=== PATIENT | male | born 1980 ===

== ENCOUNTER 2019-02-01 02:30 | Emergency (ER) | payer SELFPAY ==
[2019-02-01 02:40] VITALS: TEMP 98.3
--- NOTE | 2019-02-01 03:14 | C.PDOC ---
History Of Present Illness Patient presents to ED with complaint of left hand and left forearm pain since yesterday. 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 He denies fever, nausea, vomiting, weakness, or numbness . Time Seen by Provider: 02/01/19 03:14 Chief Complaint (Nursing): Upper Extremity Problem/Injury History Per: Patient History/Exam Limitations: no limitations Onset/Duration Of Symptoms: Days (1) Current Symptoms Are (Timing): Still Present Quality: "Pain" Severity: Moderate Pain Scale Rating Of: 4 Exacerbating Factor(s): Nothing Recent travel outside of the [place]: No Additional History Per: Patient Past Medical History Reviewed: Historical Data, Nursing Documentation, Vital Signs Vital Signs: Last Vital Signs Temp 98.3 F 02/01/19 02:35 Pulse 82 02/01/19 02:35 Resp 16 02/01/19 02:35 BP 136/95 H 02/01/19 02:35 Pulse Ox 97 02/01/19 02:35 Primary Care Provider: Eliecer Piper - Medical History PMH: No Chronic Diseases Surgical History: No Surg Hx Family History: States: Unknown Family Hx - Social History Hx Alcohol Use: No Hx Substance Use: No - Immunization History Hx Tetanus Toxoid Vaccination: No Hx Influenza Vaccination: No Hx Pneumococcal Vaccination: No Review Of Systems Constitutional: Negative for: Fever, Chills, Weakness Cardiovascular: Negative for: Chest Pain Respiratory: Negative for: Cough, Shortness of Breath Gastrointestinal: Negative for: Nausea, Vomiting Musculoskeletal: Positive for: Arm Pain (left forearm), Hand Pain (left) Skin: Negative for: Rash Neurological: Negative for: Weakness, Numbness Physical Exam - Physical Exam Appears: Non-toxic, No Acute Distress Skin: Warm, Dry Head: Normacephalic Eye(s): bilateral: Normal Inspection Oral Mucosa: Moist Neck: Trachea Midline, Supple Chest: Symmetrical Cardiovascular: Rhythm Regular Respiratory: No Rales, No Rhonchi, No Wheezing Gastrointestinal/Abdominal: Bowel Sounds (normoactive), Soft, No Tenderness, No Distention Extremity: Normal ROM (of the left hand and forearm), No Tenderness, Capillary Refill <2 Sec, No Swelling, Other (normal axillary pulse bilaterally) Extremity: Bilateral: Normal Color And Temperature Pulses: Left Radial: Normal, Right Radial: Normal Neurological/Psych: Oriented x3, Normal Speech, Normal Cognition, Normal Motor (5/5 strength), Normal Sensation Gait: Steady ED Course And Treatment O2 Sat by Pulse Oximetry: 97 (in RA) Pulse Ox Interpretation: Normal - CT Scan/US CT-Brain Other Rad Studies (CT/US): Read By Radiologist ([place] [facility]) CT/US Interpretation: IMPRESSION: Normal unenhanced CT scan of the brain. Moderate chronic mucosal inflammatory changes of the left ethmoid air cells. Air-fluid level in the left sphenoid sinus. Acute sinusitis. . Electronically signed on February 01, 2019 4:55:59 AM EDT by: Tiffany Cuevas M.D., Certified by CAMERON, MSPj, Neuroradiology. CT C-spine Other Rad Studies (CT/US): Read By Radiologist ([place] [facility]) CT/US Interpretation: IMPRESSION: Normal unenhanced CT examination of the cervical spine. . Electronically signed on February 01, 2019 4:57:38 AM EDT by: Tiffany Cuevas M.D., Certified by CAMERNO, MSK, Neuroradiology Reevaluation Time: 05:08 Reassessment Condition: Improved Medical Decision Making Medical Decision Making: Upon provider reevaluation patient is feeling better, is medically stable, and requires no further treatment in the ED at this time. Patient will be discharged home with Rx for naproxen . Counseling was provided and all questions were answered regarding diagnosis and need for follow up with the referred clinic. T here is agreement to discharge plan. Return if symptoms persist or worsen. Disposition Counseled Patient/Family Regarding: Studies Performed, Diagnosis, Need For Followup - Disposition Referrals: Eliecer Piper MD [Non-Staff] - Osvaldo House MD [Staff Provider] - Disposition: HOME/ ROUTINE Disposition Time: 03:14 Condition: FAIR Additional Instructions: Please return if symptoms recur Prescriptions: Naproxen [Naprosyn] 1 tab PO BID PRN #25 tab PRN Reason: Pain Instructions: Rotator Cuff Tendinitis Stretching Exercises, Paresthesias (DC) Forms: [facility] ([place]), Work Excuse - Clinical Impression Clinical Impression: Arm pain, left, Paresthesia - Scribe Statement The provider has reviewed the documentation as recorded by the Scribe (Arline Watts) All medical record entries made by the Scribe were at my direction and per sonally dictated by me. I have reviewed the chart and agree that the record accurately reflects my personal performance of the history, physical exam, medical decision making, and the department course for this patient. I have also personally directed, reviewed, and agree with the discharge instructions and disposition.
[2019-02-01 04:48] VITALS: BP 124/86; PULSE 86; RESP 18
[2019-02-01 04:58] VITALS: O2SAT 97
--- NOTE | 2019-02-01 07:58 | CT ---
Date of service: 02/01/2019 PROCEDURE: CT HEAD WITHOUT CONTRAST. HISTORY: numbness left arm COMPARISON: None available. TECHNIQUE: Axial computed tomography images were obtained through the head/brain without intravenous contrast. Radiation dose: Total exam DLP = 1049.73 mGy-cm. This CT exam was performed using one or more of the following dose reduction techniques: Automated exposure control, adjustment of the mA and/or kV according to patient size, and/or use of iterative reconstruction technique. FINDINGS: HEMORRHAGE: No intracranial hemorrhage. BRAIN: No mass effect or edema. No atrophy or chronic microvascular ischemic changes. VENTRICLES: Unremarkable. No hydrocephalus. CALVARIUM: Unremarkable. PARANASAL SINUSES: Moderate mucosal thickening and opacification of the ethmoid air cells and sphenoid sinus. MASTOID AIR CELLS: Unremarkable as visualized. No inflammatory changes. OTHER FINDINGS: Fullness in the intrasellar region, nonspecific. Clinical correlation. IMPRESSION: No acute intracranial abnormality. Sinus mucosal disease. If symptoms persist, or there is concern for acute ischemic change, consider correlation with MRI. A preliminary report was generated at 4:55 a.m. on 02/01/[address] Tiffany Cuevas from [employer].
--- NOTE | 2019-02-01 08:32 | CT ---
Date of service: 02/01/2019 PROCEDURE: CT Cervical Spine without contrast HISTORY: numbness left arm COMPARISON: None available. TECHNIQUE: Axial computed tomography images were obtained of the cervical spine without the use of intravenous contrast. Coronal and sagittal reformatted images were created and reviewed. Radiation dose: Total exam DLP = 589.68 mGy-cm. This CT exam was performed using one or more of the following dose reduction techniques: Automated exposure control, adjustment of the mA and/or kV according to patient size, and/or use of iterative reconstruction technique. FINDINGS: VERTEBRAE: There is straightening of the cervical spine with loss of normal cervical lordosis. Vertebral alignment is normal. Vertebral height is maintained. There is no acute fracture or traumatic anterior listhesis. The craniocervical junction is normal. The atlantoaxial joint is normal. DISCS/SPINAL CANAL/NEURAL FORAMINA: There is mild multilevel degenerative disc disease due to combination of disc osteophyte complexes, uncovertebral joint hypertrophy and mild multilevel facet arthropathy, worse at C3-4 with severe right and moderate left neural foraminal narrowing without significant central spinal canal stenosis. PARASPINAL SOFT TISSUES: Unremarkable. OTHER FINDINGS: None. IMPRESSION: No acute fracture or traumatic anterior listhesis. Straightening of the cervical spine may be positional or related to muscle spasm. Mild multilevel degenerative disc disease due to combination of disc osteophyte complexes, uncovertebral joint hypertrophy and multilevel facet arthropathy, worse at C3-4 with severe right and moderate left neural foraminal narrowing. Please note if there is a persistent clinical concern, an MRI of the cervical spine without intravenous contrast is the modality of choice to evaluate for degenerative disc disease. A preliminary report was provided by [employer]. The final report is tagged to the PA review folder.
== END 2019-02-01 05:17 | disposition home or self-care (01) ==
LOC: C.ER 02:30
DX: M79.602 Pain in left arm (principal); R20.2 Paresthesia of skin